=== PATIENT | male | born 1955 | race Caucasian/White ===

== ENCOUNTER 2019-02-07 16:26 | Inpatient (IN) | payer MEDICARE, SELFPAY ==
[2019-02-13] VITALS (13 sets, daily range): BP systolic 90–118; BP diastolic 36–72; PULSE 59–73; RESP 13–19; TEMP 36.6–36.9; O2SAT 90–97
[2019-02-13] MEDS: hydrocortisone 100 mg/2 mL SDV 50 MG IVP ×3 (04:52→18:46)
[2019-02-13 05:41] LABS: Alanine Aminotransferase 7 U/L (0-41); Albumin Level 2.7 g/dL (3.5-5.2); Alkaline Phosphatase 58 IU/L (40-130); Anion Gap 16.9 (5-19); Aspartate Amino Transferase 15 U/L (0-40); Blood Urea Nitrogen 41 mg/dL (8-23); Calcium 7.7 mg/Dl (8.8-10.2); Carbon Dioxide 23 mmol/L (22-29); Chloride 97 mmol/L (98-107); Globulin 3.1 g/dL (1.3-4.6); Glomerular Filtration Rate 9.9 mL/min (90-130); Glucose 122 mg/dL (74-106); Potassium 3.9 mmol/L (3.5-5.1); Sodium 133 mmol/L (136-145); Total Protein 5.8 g/dL (6.6-8.7)
--- NOTE | 2019-02-13 10:14 | PC.NURSE ---
iv intake for levophed amount is document on the other intake amount on intake and output
[2019-02-13] MEDS: famotidine 20 mg/2 mL INJ IVP ×2 (10:26→18:45)
[2019-02-13] MEDS: midodrine 5 mg TABLET 10 MG PO ×3 (10:28→23:08)
--- NOTE | 2019-02-13 10:34 | PM.PN ---
Subjective Subjective: Interval history: Patient is much more awake and alert this morning. He seemed to be sitting up in bed. He is conversant. Does need frequent redirection as to his surroundings.He is now able to swallow medications and has been started on midodrine. Per nursing report, he was off levophed overnight, but needed to be resumed at 2mcg/min this morning. Iv line pulled out accidentally this morning, right arm infiltrated. Blood culture clear since 02/08. Vitals/I&O/Wt Last Vital Signs Temp 97.8 F 02/13/19 08:00 Pulse 62 02/13/19 08:00 Resp 18 02/13/19 08:00 BP 91/51 02/13/19 08:00 Pulse Ox 97 02/13/19 08:00 02/12/19 02/13/19 02/13/19 22:59 06:59 14:59 Intake Total 720 / 720 Balance 720 / 720 Weight last 48 hrs Weight 67.67 kg Physical Exam Const: COMMON NORMALS: no apparent distress EXAM LIMITATIONS: behavioral limitations ORIENTATION/CONSCIOUSNESS: Yes awake and Yes oriented to person HENMT: COMMON NORMALS: normocephalic HEAD & SCALP: normocephalic Resp: COMMON NORMALS: normal respiratory effort, no use of accessory muscles and clear to auscultation bilaterally AUSCULTATION: clear to auscultation bilaterally Cardio: COMMON NORMALS: S1 normal heart sound, S2 normal heart sound and peripheral pulses 2+ throughout HEART SOUNDS: S1 normal and S2 normal PERIPHERAL PULSES: pulses 2+ throughout GI: COMMON NORMALS: normal to inspection, nondistended, normoactive bowel sounds and non-tender GI image (male): 1. paraincisional hernia Extremity: EXTREMITY IMAGE (FRONT): 1. B/L LE discolaration, unchanged, appears to be stasis dermatitis. Pulses WNL 2. Neuro: COMMON NORMALS: moves all extremities SENSORIUM/ORIENTATION: Yes oriented to person Data Labs: Other Labs: All Labs last 24 hrs except CBC/BMP 02/12/19 02/12/19 02/13/19 03:20 03:20 04:59 RBC 3.03 L MCV 104.6 H MCH 34.3 H MCHC 32.8 RDW 17.6 H MPV 10.8 H Neut % (Auto) 78.1 Lymph % (Auto) 16.6 Baxter % (Auto) 4.0 Eos % (Auto) 0.0 Baso % (Auto) 0.1 Neut # (Auto) 5.9 Lymph # (Auto) 1.3 Baxter # (Auto) 0.3 Eos # (Auto) 0.0 Baso # (Auto) 0.0 Nucleated RBC % (a uto) 0 Nucleated RBCs # 0.0 GFR Calculation 14.0 L 9.9 L Random Glucose 151 H Calcium 7.9 L 7.7 L Total Bilirubin 1.1 1.0 AST 14 15 ALT 9 7 Alkaline Phosphata se 65 58 Total Protein 6.0 L 5.8 L Albumin 2.4 L 2.7 L Globulin 3.6 3.1 Micro: Micro: 02/09: blood cx negative 1227 urine culture with E. coli 1226 blood culture with E. 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 This was seen to be improving on repeat CT. Urology consult was sought, no acute surgical intervention currently indicated. Patient's leukocytosis has nearly resolved. His pressor requirements are now trending down. We will start to titrate hydrocortisone today. Keep midodrine at 10 mg p.o. 3 times daily. Also started on albumin every 12 hours to maintain blood pressure. Continue ceftriaxone 1 g IV every 24 hours. Anticipate that patient will need at least 14 days of IV antibiotics from clearance of blood culture. Will place PICC line for the same reason. Central line to be removed once PICC line access has been established. Acute metabolic encephalopathy is also related to sepsis. Mental status is now slowly improving. Will obtain a bedside swallow eval and resume diet if patient is able to tolerate. End-stage renal disease on maintenance hemodialysis. Next HD per renal recommendations. Thrombocytopenia likely due to severe sepsis ESRD and history of hep C. Platelet count was slowly improving. We will resume DVT prophylaxis with heparin 5000 subcu every 12 hours. Status: Acute Code(s): A41.51 - Sepsis due to Escherichia coli [E. coli]; R65.21 - Severe sepsis with septic shock (3) Anemia: Status: Acute Code(s): D64.9 - Anemia, unspecified (4) Thrombocytopenia: Status: Acute Code(s): D69.6 - Thrombocytopenia, unspecified (5) Acute metabolic encephalopathy: Status: Acute Code(s): G93.41 - Metabolic encephalopathy Attestations Medical Necessity Statement*: Remains admitted for the management of E. coli septicemia and septic shock. Slowly showing some improvement we will continue to monitor closely in the ICU. 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
--- NOTE | 2019-02-13 13:39 | PC.NURSE ---
Central line: medial port taped off, does not flush or return blood.
--- NOTE | 2019-02-13 14:44 | PC.NURSE ---
Password changed to JOANN ( Name of his dog) per 's request. Previous password , [email or web address], no longer valid, it got out to the wrong person.
--- NOTE | 2019-02-13 14:50 | PC.CHAP ---
Pastoral Care Encounter/Spiritual Assessment Type of Contact [] Declined box feeder visit [] Patient/Family/Request visit [] Outpatient visit [] Follow-up visit [] Physician referral [] Code/Alert [x] Routine visit [] Staff referral [] Actively dying [] Patient sleeping [] Family support [] [] Out of room [] Palliative care [] [] Receiving care in room [] Pre-surgical visit [] Trauma [] Long length of stay [] ICU visit [] Other: Relational/Emotional Strength [] Patient feels connected with others/family/visitors/staff [x] Distress [x] Loneliness/isolation [] Abandonment Spirituality of Patient [] Person of Crystal [] Attends Lutheran of their Crystal [] Believes in Prayer [] Reads Bible or Judaism materials [x] There are Spiritual issues to be addressed Adult Specialist Interventions [x] Prayer [x] Active listening [x] Non-anxious presence [x] Spiritual/emotional support [] Crisis/trauma care [] Spiritual counseling [] Bereavement support [] Provided bereavement packet [] Provided Bible/devotional materials [] Provided toy/stuffed animal, coloring book to patient or family member [] Completed spiritual assessment [] Provided Communion [] Anointing/[place] [] Salvation [] Other: Impact on Illness or Injury [] Angry [x] Fearful [x] Anxious [] Often cries [] Exhaustion [] Unable to work [] Unable to attend anglican [] Unable to walk/stand [] Unable to read [x] Unable to drive [] Unable to eat/drink [] Unable to sleep [x] Unable to be with family [] Other: Summary quit person listened responseive active Time spent with patient 10 mins
--- NOTE | 2019-02-13 15:44 | PC.NURSE ---
Right forearm IV out Catheter intact. Pressure dressing applied. Linens a bloody mess. Provided skin care and changed linens. Pt tolerated well.
--- NOTE | 2019-02-13 17:09 | P.PN_ITS ---
Subjective Subjective: Interval history: Feels ok, doing well on dialysis, pressors now tapered off, no new issues. No uremic Sx, no edema and no other acute issues Vitals/I&O/Wt Last Vital Signs Temp 97.8 F 02/13/19 08:00 Pulse 67 02/13/19 15:52 Resp 17 02/13/19 15:52 BP 107/46 02/13/19 15:52 Pulse Ox 90 02/13/19 15:52 02/13/19 02/13/19 02/13/19 06:59 14:59 22:59 Intake Total 720 / 720 314 / 314 64 / 378 Balance 720 / 720 314 / 314 64 / 378 Weight last 48 hrs Weight 67.67 kg Physical Exam Const: COMMON NORMALS: no apparent distress, average body habitus, oriented x3, no limitations, healthy appearing, alert and well nourished Eye: COMMON NORMALS: PERRL, EOMs intact bilaterally, conjunctivae normal, no scleral icterus, no papilledema, normal visual velasco by confrontation and fundi normal bilaterally CONJUNCTIVA: Yes conjunctivae normal PUPIL: Yes PERRL DIRECT OPHTHALMOSCOPY: Yes no papilledema and Yes fundi normal bilaterally Neck/C-Spine: COMMON NORMALS: no JVD Lymph: LYMPHATIC: no lymphadenopathy noted and No lymphedema Chest: COMMONS NORMALS: inspection of chest normal and palpation of chest normal Resp: COMMON NORMALS: normal respiratory effort, no retractions, no use of accessory muscles and clear to auscultation bilaterally AUSCULTATION: clear to auscultation bilaterally Cardio: COMMON NORMALS: no JVD, regular rate, regular rhythm and no murmurs RATE: regular rate RHYTHM: regular rhythm GI: COMMON NORMALS: normal to inspection, nondistended, normoactive bowel sounds and soft to palpation PALPATION: Yes soft Neuro: COMMON NORMALS: oriented x3 SENSORIUM/ORIENTATION: Yes alert Urinary Catheter Management^: Ko: Cath Placed During This Visit: no Data Labs: Other Labs: All Labs last 24 hrs except CBC/BMP 02/13/19 04:59 GFR Calculation 9.9 L Calcium 7.7 L Total Bilirubin 1.0 AST 15 ALT 7 Alkaline Phosphata se 58 Total Protein 5.8 L Albumin 2.7 L Globulin 3.1 A&P Additional A&P Information Additional A&P Information: 1. ESRD - doing well on dialysis; 2K, UF minimal given the effects on is hemodynamics 2. Pyelonephritis - Responding to Abx - pressors now coming down 3. Bone metabolism - cont OP meds - phos and iPTH to be managed as outpatient per standard care. 4. 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
[2019-02-13] MEDS: cefTRIAXone 1,000 MG in sodium chloride 0.9% (plus) 50 ML 100 MG IV (18:45)
[2019-02-13] MEDS: heparin 5,000 unit/mL INJ 1 mL 5000 UNIT SUBCUT (18:46)
[2019-02-13] MEDS: sodium chloride 0.9 % (flush) syringe 10 mL 2 ML IV (23:08)
[2019-02-14] VITALS (17 sets, daily range): BP systolic 103–138; BP diastolic 43–86; PULSE 51–90; RESP 12–28; TEMP 36.2–36.6; O2SAT 87–99; BMI 21.0
[2019-02-14 04:11] LABS: Hematocrit 25.3 % (42.0-52.0); Hemoglobin 7.8 g/dL (11.7-16.6); Lymphocytes # 0.7 10^3/uL (0.8-4.8); Lymphocytes % 10.8 %; Mean Corpuscular HGB Conc 30.8 g/dL (30.0-36.0); Mean Corpuscular Hemoglobin 34.7 pg (28.0-34.0); Mean Corpuscular Volume 112.4 fL (80-94); Mean Platelet Volume 11.4 fL (7.4-10.4); Monocytes # 0.2 10^3/uL (0.2-0.9); Monocytes % 3.5 %; Neutrophils # 5.3 10^3/uL (1.8-7.7); Neutrophils % 84.3 %; Nucleated Red Blood Cells % 0 %; Platelet Count 57 10^3/cmm (130-400); Red Blood Count 2.25 10^6/uL (4.1-5.3); Red Cell Distribution Width 17.8 % (12.1-15.1); White Blood Count 6.3 10^3/uL (4.0-10.0)
[2019-02-14 04:22] LABS: Add RBC Morph No
[2019-02-14 04:34] LABS: Alanine Aminotransferase 9 U/L (0-41); Albumin Level 3.1 g/dL (3.5-5.2); Alkaline Phosphatase 49 IU/L (40-130); Anion Gap 13.1 (5-19); Aspartate Amino Transferase 20 U/L (0-40); Blood Urea Nitrogen 23 mg/dL (8-23); Calcium 7.2 mg/Dl (8.8-10.2); Carbon Dioxide 25 mmol/L (22-29); Chloride 100 mmol/L (98-107); Globulin 2.2 g/dL (1.3-4.6); Glomerular Filtration Rate 16.7 mL/min (90-130); Glucose 109 mg/dL (74-106); Potassium 3.1 mmol/L (3.5-5.1); Sodium 135 mmol/L (136-145); Total Protein 5.3 g/dL (6.6-8.7)
[2019-02-14] MEDS: hydrocortisone 100 mg/2 mL SDV 50 MG IVP ×3 (06:01→23:07)
[2019-02-14] MEDS: heparin 5,000 unit/mL INJ 1 mL 5000 UNIT SUBCUT (06:01)
[2019-02-14] MEDS: sodium chloride 0.9 % (flush) syringe 10 mL 2 ML IV ×3 (06:02→23:07)
[2019-02-14] MEDS: famotidine 20 mg/2 mL INJ IVP ×2 (08:37→17:35)
[2019-02-14] MEDS: midodrine 5 mg TABLET 10 MG PO ×2 (08:43→15:10)
--- NOTE | 2019-02-14 09:01 | P.PN_ITS ---
Subjective Subjective: Interval history: conitnues to appear deconditioned, however able to state correctly his name, and location to me. Correctly states that he was living alone at home prior to coming in and would like to go to [place] upon discharge. HB to 7.8<--10.4. No gross daisha noted. @ bm overnight- semi solid. No leukocytosis. Plt down to 57<--72. R arm infiltrated 2/2 IV leak. Fistula site appears swollen, though without overlying warmth or tenderness. No new complaints today, states he feels well Vitals/I&O/Wt Last Vital Signs Temp 97.6 F 02/14/19 07:40 Pulse 71 02/14/19 07:40 Resp 18 02/14/19 07:40 BP 107/63 02/14/19 07:40 Pulse Ox 94 02/14/19 07:40 02/13/19 02/14/19 02/14/19 22:59 06:59 14:59 Intake Total 614 / 1128 100 / 100 Balance 614 / 1128 100 / 100 Weight last 48 hrs Weight 67.67 kg Physical Exam Narrative: EXAM NARRATIVE: GEN: Frail, severely deconditioned, however awake and alert while having a conversation. 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 This was seen to be improving on repeat CT. Urology consult was sought, no acute surgical intervention currently indicated. Patient's leukocytosis has resolved. He is off pressors for over 24hrs. We will continue to titrate hydrocortisone to q12h today. Keep midodrine at 10 mg p.o. 3 times daily. Also started on albumin every 12 hours to maintain blood pr essure. Continue ceftriaxone 1 g IV every 24 hours. Anticipate that patient will need at least 14 days of IV antibiotics from clearance of blood culture (02/09-02/23) Will place PICC line for the same reason. Central line to be removed once PICC line access has been established. Acute metabolic encephalopathy also most likely related to sepsis. Mental status is now slowly improving, however patient continues to appear frail and severely deconditioned Diet resumed yesetrday - to advance as tolerated End-stage renal disease on maintenance hemodialysis. Next HD per renal recommendations. Thrombocytopenia likely due to severe sepsis ESRD and history of hep C. Platelet count trending down again. Hb to 7.8, may be dilutional, however will check gasticoccult and hold off on heparin ppx for now. Will need NH placement on discharge as unsafe to return home alone. Status: Acute Code(s): A41.51 - Sepsis due to Escherichia coli [E. coli]; R65.21 - Severe sepsis with septic shock (3) Anemia: likely multifactorial from ESRD, critical illnenss. Monitopr H&H. trans fuse if <7. 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
--- NOTE | 2019-02-14 10:24 | PC.NURSE ---
HOME MED: LISAEX D: Pt's home med taken to pharmacy [id number] on February 13, 2019 for a home med label. Still awaiting to received this medication back to admin.
[2019-02-14] MEDS: potassium chloride premix 40 MEQ/100 ML PREMIX 25 MEQ IV (12:21)
--- NOTE | 2019-02-14 13:41 | PC.NURSE ---
1130- PICC NOTE CONSENT FOR PROCEDURE NEEDS TO BE OBTAINED FROM PT SISTER, PRIMARY NURSE NEREYDA WILL COMPLETE. PICC PLACEMENT WILL BE PERFORMED ON 02/15/19 PATIENT HAS FUNCTIONING CENTRAL LINE INSERTED 02-01-19.
--- NOTE | 2019-02-14 15:25 | P.PN_ITS ---
Subjective Subjective: Interval history: remains awake and interactive; feels ok , remains very weak. Pressure are better controlled and he is off pressors. No overt fluid overload and no uremic Sx. Vitals/I&O/Wt Last Vital Signs Temp 97.6 F 02/14/19 07:40 Pulse 64 02/14/19 13:30 Resp 19 H 02/14/19 12:00 BP 117/58 02/14/19 12:00 Pulse Ox 93 02/14/19 13:30 02/14/19 02/14/19 02/14/19 06:59 14:59 22:59 Intake Total 740 / 740 Balance 740 / 740 Weight last 48 hrs Weight 68.492 kg Weight 68.492 kg Physical Exam Const: COMMON NORMALS: no apparent distress, average body habitus, oriented x3, no limitations, healthy appearing, alert and well nourished Eye: COMMON NORMALS: PERRL, EOMs intact bilaterally, conjunctivae normal, no scleral icterus, no papilledema, normal visual velasco by confrontation and fundi normal bilaterally CONJUNCTIVA: Yes conjunctivae normal PUPIL: Yes PERRL DIRECT OPHTHALMOSCOPY: Yes no papilledema and Yes fundi normal bilaterally Neck/C-Spine: COMMON NORMALS: no JVD Lymph: LYMPHATIC: no lymphadenopathy noted and No lymphedema Chest: COMMONS NORMALS: inspection of chest normal and palpation of chest normal Resp: COMMON NORMALS: normal respiratory effort, no retractions, no use of accessory muscles and clear to auscultation bilaterally AUSCULTATION: clear to auscultation bilaterally Cardio: COMMON NORMALS: no JVD, regular rate, regular rhythm and no murmurs RATE: regular rate RHYTHM: regular rhythm GI: COMMON NORMALS: normal to inspection, nondistended, normoactive bowel sounds and soft to palpation PALPATION: Yes soft Neuro: COMMON NORMALS: oriented x3 SENSORIUM/ORIENTATION: Yes alert Urinary Catheter Management^: Ko: Cath Placed During This Visit: no Data Micro: Micro: Microbiology 02/14/19 07:00 Occult Blood (FIT) - Final Stool A&P Additional A&P Information Additional A&P Information: 1. ESRD - plan on dialysis tomorrow; 2K, UF minimal given the effects on is hemodynamics 2. Pyelonephritis - Responding to Abx - pressors now coming down 3. Bone metabolism - cont OP meds - phos and iPTH to be managed as outpatient per standard care. 4. 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
--- NOTE | 2019-02-14 15:58 | PC.CHAP ---
Pastoral Care Encounter/Spiritual Assessment Type of Contact [] Declined bacteriologist industrial visit [] Patient/Family/Request visit [] Outpatient visit [] Follow-up visit [] Physician referral [] Code/Alert [x] Routine visit [] Staff referral [] Actively dying [] Patient sleeping [] Family support [] [] Out of room [] Palliative care [] [] Receiving care in room [] Pre-surgical visit [] Trauma [] Long length of stay [x] ICU visit [] Other: Relational/Emotional Strength [] Patient feels connected with others/family/visitors/staff [x] Distress [x] Loneliness/isolation [] Abandonment Spirituality of Patient [x] Person of Crystal [] Attends Anglican of their Crystal [x] Believes in Prayer [] Reads Bible or Religion materials [] There are Spiritual issues to be addressed Network Management Specialist Interventions [x] Prayer [x] Active listening [x] Non-anxious presence [x] Spiritual/emotional support [] Crisis/trauma care [] Spiritual counseling [] Bereavement support [] Provided bereavement packet [] Provided Bible/devotional materials [] Provided toy/stuffed animal, coloring book to patient or family member [x] Completed spiritual assessment [] Provided Communion [] Anointing/[place] [] Salvation [] Other: Impact on Illness or Injury [] Angry [] Fearful [] Anxious [] Often cries [] Exhaustion [x] Unable to work [] Unable to attend synagogue [x] Unable to walk/stand [] Unable to read [x] Unable to drive [x] Unable to eat/drink [] Unable to sleep [x] Unable to be with family [] Other: Summary Able to talk, not very comunive does understand what is going on respossive, pleasent, been in [address] days. Network Management Specialist Dr alessio Caba Time spent with patient 10 mins
--- NOTE | 2019-02-14 17:13 | ECG_ITS ---
Measurements Intervals [place] Rate: 59 P: 37 ID: [id number] QRS: 42 QRSD: 116 T: 43 QT: 462 QTc: 461 SINUS BRADYCARDIA WITH SUPRAVENTRICULAR PREMATURE COMPLEXES INCOMPLETE RIGHT BUNDLE BRANCH BLOCK [90+ ms QRS DURATION, TERMINAL R IN V1/V2, 40+ ms S IN I/aVL/V4/V5/V6] PROLONGED QT INTERVAL Compared to ECG 02/09/2019 03:26:28 Incomplete right bundle-branch block now present Prolonged QT interval now present Sinus rhythm no longer present Ventricular premature complex(es) no longer present Right bundle-branch block no longer present Electronically Signed On 02-15-2019 5:38:41 DIRECTOR OF CASINO by Maira Calles M.D. [email or web address]
[2019-02-14] MEDS: FUROsemide 10 mg/mL SDV 4mL 40 MG IVP (17:35)
[2019-02-14] MEDS: cefTRIAXone 1,000 MG in sodium chloride 0.9% (plus) 50 ML 200 MG IV (17:35)
--- NOTE | 2019-02-14 17:39 | XR_ITS ---
WS: [id number] Portable AP upright chest, 02/14/2019 Clinical Data: SOB Comparison: Portable chest, 02/07/2019. Findings: No nodules, masses or effusions are seen. The heart is slightly enlarged. The pulmonary vas cularity is not increased. Bilateral patchy opacities are seen especially in both lower lobes and the se are not changed. The right central venous catheter has been removed. Monitor leads are on the ches t wall. XR/XR chest 1V portable [id number] Impression: 1. Bilateral lower lobe opacities which may represent chronic bilateral pneumon ia. 2. Cardiomegaly and atherosclerosis.
[2019-02-14 17:43] LABS: ABG PH Result 7.24 (7.35-7.45); Arterial Blood Gas Hematocrit 27.8 % (42-52); Base Excess ABG 0.1 mmol/L (-2.0-2.0); Blood Gas Allen Test Pos; Blood Gas Sample Site Radial, right; Blood Gas Sample Type Arterial; HCO3 ABG 28.1 mmol/L (22-26); PO2 ABG 52.6 mmHg (80.0-100.0)
[2019-02-14 17:44] LABS: ABG PCO2 65.1 mmHg (35-45)
--- NOTE | 2019-02-14 18:35 | PC.NURSE ---
Central line Catheter pulled out of Secure clip by patient. Sutures for clip removed, PRessure held until hemeostasis obtained. New IV started, 4 attempts, to right upper arm, # 22 gauge. Immediate flash back, flushes. Pt tolerated
[2019-02-14 18:44] LABS: Alanine Aminotransferase 11 U/L (0-41); Albumin Level 3.3 g/dL (3.5-5.2); Alkaline Phosphatase 51 IU/L (40-130); Anion Gap 15.1 (5-19); Blood Urea Nitrogen 32 mg/dL (8-23); Calcium 8.3 mg/Dl (8.8-10.2); Carbon Dioxide 28 mmol/L (22-29); Chloride 99 mmol/L (98-107); Globulin 3.2 g/dL (1.3-4.6); Glomerular Filtration Rate 13.7 mL/min (90-130); Glucose 150 mg/dL (74-106); Potassium 4.1 mmol/L (3.5-5.1); Sodium 138 mmol/L (136-145); Total Protein 6.5 g/dL (6.6-8.7)
[2019-02-14 18:50] LABS: Aspartate Amino Transferase 28 U/L (0-40)
[2019-02-14 19:04] LABS: Troponin(5th) Baseline 99 ng/mL (0-15)
--- NOTE | 2019-02-14 19:23 | PC.NURSE ---
1730 Dr Rawls notified of bradycardia and , fine crackles noted in lung soundsO2 sats 84-88%. RT at bedside Oxymask and an increase in O2 tried. Orders for Lasix, Hi-flow O2, ECG, Chest xray and a CMP received. Lasix administer, then pt pulled central line 9See previous note). O2 sats do come up to 90%, Pt will not leave Oxymask or Hi-flow on. BiPap at 30% now. Pt needs constant reminder to leave it on. Hemodialysis ordered for tonight.
--- NOTE | 2019-02-14 19:30 | PC.NURSE ---
Report given to MIKEY Solomon. Hemodialysis nurse here, hemodialysis started.
[2019-02-14 20:09] LABS: Troponin 5 2HR 93.57 ng/mL (0-15)
[2019-02-14 20:11] LABS: Troponin 5 2HR Delta -5.43 ABS# (0-10)
[2019-02-15] VITALS (18 sets, daily range): BP systolic 107–147; BP diastolic 45–65; PULSE 48–86; RESP 10–29; TEMP 36–36.7; O2SAT 91–100
[2019-02-15 00:31] LABS: Troponin 5 6HR 93.65 ng/L (0-15)
[2019-02-15 00:43] LABS: Troponin 5 6HR Delta 6.65 ng/L (0-12)
[2019-02-15] MEDS: sodium chloride 0.9 % (flush) syringe 10 mL 2 ML IV (05:56)
--- NOTE | 2019-02-15 07:09 | PC.NURSE ---
SHIFT SUMMARY PT HAS BEEN CONFUSED. PT HAS BEEN BRADYCARDDIAC, NOT SUSTAINING FOR LONG PERIODS OF TIME BELOW 50. PT HAS BEEN TURNED PERIODICALLY. PT HAS HAD LIQUID BOWEL MOVEMENTS. PT LUNGS REMAIN CORSE AT TIMES WITH WHEEZES AT TIMES WELL. PT IV REMAINS PATENT. PT IS WEEPING FROM ARM EDEMA, ARMS HAVE BEEN ELEVATED.
--- NOTE | 2019-02-15 08:41 | XR_ITS ---
WS: [id number] Portable AP upright chest, 02/15/2019 Clinical Data: picc Comparison: Portable chest, 02/14/2019 Findings: The right PICC line ends in the superior vena cava. No pneumothorax is seen. The heart size and bilateral lung opacities remain the same. Small bilateral effusions are again noted. Monitor bradley ds on the chest wall. XR/XR chest 1V portable [id number] Impression: Satisfactory placement of right PICC line.
--- NOTE | 2019-02-15 09:13 | PC.NURSE ---
[facility] LOT NUMBER- [id number]. EXPIRATION- 09/12/20
[2019-02-15 09:32] LABS: Hematocrit 25.1 % (42.0-52.0); Hemoglobin 7.5 g/dL (11.7-16.6); Lymphocytes # 0.7 10^3/uL (0.8-4.8); Lymphocytes % 12.7 %; Mean Corpuscular HGB Conc 29.9 g/dL (30.0-36.0); Mean Corpuscular Hemoglobin 33.5 pg (28.0-34.0); Mean Corpuscular Volume 112.1 fL (80-94); Mean Platelet Volume 10.8 fL (7.4-10.4); Monocytes # 0.2 10^3/uL (0.2-0.9); Monocytes % 3.5 %; Neutrophils # 4.3 10^3/uL (1.8-7.7); Neutrophils % 82.6 %; Nucleated Red Blood Cells % 0 %; Platelet Count 58 10^3/cmm (130-400); Red Blood Count 2.24 10^6/uL (4.1-5.3); Red Cell Distribution Width 17.9 % (12.1-15.1); White Blood Count 5.2 10^3/uL (4.0-10.0)
--- NOTE | 2019-02-15 09:38 | P.PN_ITS ---
Subjective Subjective: Interval history: Events from last night noted. He developed severe SOB, required BIPAP; we dialyzed him to pull off 2L. Today he remains awake and interactive; feels ok , remains very weak, but remains dependent on BIPAP. Pressure just about maintaining on BIPAP. No overt fluid overload and no uremic Sx. Vitals/I&O/Wt Last Vital Signs Temp 96.8 F L 02/15/19 06:00 Pulse 48 L 02/15/19 07:56 Resp 18 02/15/19 07:56 BP 107/45 02/15/19 07:56 Pulse Ox 96 02/15/19 07:56 02/14/19 02/15/19 02/15/19 22:59 06:59 14:59 Intake Total 50 / 790 480 / 480 Output Total 0 / 0 0 / 0 Balance 50 / 790 480 / 480 Weight last 48 hrs Weight 70.08 kg Weight 68.492 kg Weight 68.492 kg Physical Exam Const: COMMON NORMALS: no apparent distress, average body habitus, oriented x3, no limitations, healthy appearing, alert and well nourished Eye: COMMON NORMALS: PERRL, EOMs intact bilaterally, conjunctivae normal, no scleral icterus, no papilledema, normal visual velasco by confrontation and fundi normal bilaterally CONJUNCTIVA: Yes conjunctivae normal PUPIL: Yes PERRL DIRECT OPHTHALMOSCOPY: Yes no papilledema and Yes fundi normal bilaterally Neck/C-Spine: COMMON NORMALS: no JVD Lymph: LYMPHATIC: no lymphadenopathy noted and No lymphedema Chest: COMMONS NORMALS: inspection of chest normal and palpation of chest normal Resp: EFFORT & INSPECTION: Yes symmetric chest movement AUSCULTATION: rales and rhonchi Cardio: COMMON NORMALS: no JVD, regular rate, regular rhythm and no murmurs RATE: regular rate RHYTHM: regular rhythm GI: COMMON NORMALS: normal to inspection, nondistended, normoactive bowel sounds and soft to palpation PALPATION: Yes soft Neuro: COMMON NORMALS: oriented x3 SENSORIUM/ORIENTATION: Yes alert Urinary Catheter Management^: Ko: Cath Placed During This Visit: no Data Micro: Micro: Microbiology 02/14/19 07:00 Occult Blood (FIT) - Final Stool A&P Additional A&P Information Additional A&P Information: 1. ESRD - plan on dialysis again today; given very labile hemodynamics I prefer frequent low volume UF; this is essentially equivalent to CRRT - 3K today and 2L UF 2. Pyelonephritis - Responding to Abx - pressors now coming down 3. Bone metabolism - cont OP meds - phos and iPTH to be managed as outpatient per standard care. 4. Hypotension - random shanika ok - echo noted 5. 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
[2019-02-15 09:45] LABS: Alanine Aminotransferase 9 U/L (0-41); Albumin Level 3.5 g/dL (3.5-5.2); Alkaline Phosphatase 45 IU/L (40-130); Anion Gap 14.8 (5-19); Aspartate Amino Transferase 18 U/L (0-40); Blood Urea Nitrogen 40 mg/dL (8-23); Calcium 8.3 mg/Dl (8.8-10.2); Carbon Dioxide 26 mmol/L (22-29); Chloride 102 mmol/L (98-107); Glomerular Filtration Rate 11.3 mL/min (90-130); Glucose 112 mg/dL (74-106); Potassium 3.8 mmol/L (3.5-5.1); Sodium 139 mmol/L (136-145); Total Protein 5.5 g/dL (6.6-8.7)
[2019-02-15] MEDS: hydrocortisone 100 mg/2 mL SDV 50 MG IVP (10:24)
[2019-02-15] MEDS: midodrine 5 mg TABLET PO ×2 (10:26→15:05)
--- NOTE | 2019-02-15 13:35 | PC.NURSE ---
placed on nc at this time has been drowsy today and not taking much po picc line inserted right bleeding noted at site and pressure dressing on
[2019-02-15 13:38] LABS: Arterial Blood Gas Hematocrit 24.8 % (42-52); Blood Gas Allen Test Pos; Blood Gas Sample Site Radial, left; Blood Gas Sample Type Arterial; HGB O2 Sat 95.9 % (95-100)
[2019-02-15 13:48] LABS: ABG PCO2 54.9 mmHg (35-45); Base Excess ABG 0.2 mmol/L (-2.0-2.0)
--- NOTE | 2019-02-15 13:48 | PC.NURSE ---
starting dialysis at this time bipap off
--- NOTE | 2019-02-15 14:34 | PC.CHAP ---
Pastoral Care Encounter/Spiritual Assessment Type of Contact [x] Declined catalyst operator visit [] Patient/Family/Request visit [] Outpatient visit [] Follow-up visit [] Physician referral [] Code/Alert [] Routine visit [] Staff referral [] Actively dying [] Patient sleeping [] Family support [] [] Out of room [] Palliative care [] [] Receiving care in room [] Pre-surgical visit [] Trauma [x] Long length of stay [x] ICU visit [] Other: Relational/Emotional Strength [] Patient feels connected with others/family/visitors/staff [] Distress [] Loneliness/isolation [] Abandonment Spirituality of Patient [] Person of Crystal [] Attends Protestant of their Crystal [] Believes in Prayer [] Reads Bible or Spiritism materials [] There are Spiritual issues to be addressed Medical Facilities Section Director Interventions [] Prayer [] Active listening [] Non-anxious presence [] Spiritual/emotional support [] Crisis/trauma care [] Spiritual counseling [] Bereavement support [] Provided bereavement packet [] Provided Bible/devotional materials [] Provided toy/stuffed animal, coloring book to patient or family member [] Completed spiritual assessment [] Provided Communion [] Anointing/[place] [] Salvation [] Other: Impact on Illness or Injury [] Angry [] Fearful [] Anxious [] Often cries [] Exhaustion [] Unable to work [] Unable to attend orthodox [] Unable to walk/stand [] Unable to read [] Unable to drive [] Unable to eat/drink [] Unable to sleep [] Unable to be with family [] Other: Summary Patient declined to visit with catalyst operator. Visit attempted by catalyst operator Rosendo Smith Time spent with patient 3 minutes
--- NOTE | 2019-02-15 15:51 | P.TS_ITS ---
Transfer Summary Providers Date of Admission: 02/07/19 16:26 Date of Discharge: 02/15/19 Attending Provider at Admission: Eva Rawls MD Attending Provider at Transfer: Eva Rawls MD Primary Care Provider: Elizabeth Christianson Anticipated Date of Transfer: Anticipated date of transfer: 02/15/19 Receiving Facility & Provider: Receiving Provider: [[facility] Goodman] [facility] Diagnoses at Discharge Discharge Diagnosis (1) ESRD needing dialysis: Status: Chronic Problem details: Patient undergoing HD per renal recommendations. Last dialysis 02/15/19. Additional HD on 02/14/19 (2) Septic shock due to Escherichia coli: Status: Acute Problem details: Emphysematous cystitis and collecting system gas seen on admission CT. Improved on follow up. Blood and urine cx + for E.coli. Urology consulted, no surgical intervention recommended since improved CT, leukocytosis downtrending and blood cx cleared.Also had B/L lung infiltrates. Initially on Primaxin and Vancomycin, narrowed to Ceftriaxone based on culture. Planned for 14 days of rx from clearance of cx (02/09-02/23). Initially on Norepinephrine, gradually tapered to overlap with po midodrine. Now on po midodrine to maintain MAP>65. On 02/14/19 evening, had hypoxic resp failure with 02 sat down to low 80s. Of note, had not had HD on 02/14 prior to this event and no fluid was removed due to tenous pressure on 02/13. Likely had pulmonary edema as a result with hypoxia. ABG with hypoxia and Hypercarbia. On BiPAP ventilation since then with improvement in ABG. (3) Anemia: Status: Acute (4) Thrombocytopenia: Status: Acute (5) Acute metabolic encephalopathy: Status: Acute Problem details: Mental status improving on 02/13 and 02/14. Since being on BiPAP has started to Reason for Visit Reason for Visit: Reason For Visit: Septic Shock, Pneumonia Physical Exam Narrative: EXAM NARRATIVE: GEN: lethargic, however wakes up to calling name and answers basic questions CVS: S1S2 N RS: B/L basilar rales on auscultation CCVS: S1S2N NEuro: lethargic, wakes up to calling name, moves all extremities in bed EXT: Right arm PICC line placed 1/3/20. Left arm AV fistula,, surrounding swelling and skin weeping Urinary Catheter Management^: Ko: Cath Placed During This Visit: no TS Data Data Completed and Pending: Completed Studies During Hospitalization Category Date Time Status CXRP [XR chest 1V portable [id number]] S tat Exams 02/15/19 08:41 Completed XR chest 1V tavo ble [id number] Stat Exams 02/14/19 17:39 Completed Pending at discharge Category Date Time Status ABG Coox Only Rou cristina Lab 02/15/19 13:25 Results Arterial Blood Ga s W/O Coox Routine Lab 02/14/19 17:30 Results Arterial Blood Ga s W/O Coox Routine Lab 02/15/19 08:23 Ordered Arterial Blood Ga s W/O Coox Routine Lab 02/15/19 13:25 Results Sputum Culture an d Gram Stain Routi ne Lab 02/12/19 23:55 Uncollected Labs from last 24 hours 02/15/19 02/15/19 02/15/19 13:25 09:23 09:23 WBC 5.2 RBC 2.24 L Hgb 7.5 L Hct 25.1 L MCV 112.1 H MCH 33.5 MCHC 29.9 L RDW 17.9 H Plt Count 58 L MPV 10.8 H Neut % (Auto) 82.6 Lymph % (Auto) 12.7 [place] % (Auto) 3.5 Eos % (Auto) 0.0 Baso % (Auto) 0.0 Neut # (Auto) 4.3 Lymph # (Auto) 0.7 L [place] # (Auto) 0.2 Eos # (Auto) 0.0 Baso # (Auto) 0.0 Nucleated RBC % (a uto) 0 Nucleated RBCs # 0.0 Specimen Type Arterial Sample Site Radial, left ABG pH 7.30 L ABG pCO2 54.9 H ABG pO2 118.0 H ABG HCO3 27.0 H ABG Base Excess 0.2 Blas Test Pos Hematocrit 24.8 L Hgb O2 Saturation 95.9 O2 Delivery Device O2 Liters/Min Mode BiPAP Specimen Drawn By Chain Builder ID yorna Sodium 139 Potassium 3.8 Chloride 102 Carbon Dioxide 26 Anion Gap 14.8 BUN 40 H Creatinine 5.2 H GFR Calculation 11.3 L Glucose 112 H Calcium 8.3 L Total Bilirubin 1.0 AST 18 ALT 9 Alkaline Phosphata se 45 Troponin I 6 Hour Troponin I Hi Sens Del Troponin T Baselin e Troponin T 120 Min seminole Delta Troponin T Total Protein 5.5 L Albumin 3.5 Globulin 2.0 02/14/19 02/14/19 02/14/19 23:48 19:40 17:45 WBC RBC Hgb Hct MCV MCH MCHC RDW Plt Count MPV Neut % (Auto) Lymph % (Auto) [place] % (Auto) Eos % (Auto) Baso % (Auto) Neut # (Auto) Lymph # (Auto) [place] # (Auto) Eos # (Auto) Baso # (Auto) Nucleated RBC % (a uto) Nucleated RBCs # Specimen Type Sample Site ABG pH ABG pCO2 ABG pO2 ABG HCO3 ABG Base Excess Blas Test Hematocrit Hgb O2 Saturation O2 Delivery Device O2 Liters/Min Mode BiPAP Specimen Drawn By Chain Builder ID Sodium Potassium Chloride Carbon Dioxide Anion Gap BUN Creatinine GFR Calculation Glucose Calcium Total Bilirubin AST ALT Alkaline Phosphata se Troponin I 6 Hour 93.65 H Troponin I Hi Sens Del 6.65 Troponin T Baselin e 99 H Troponin T 120 Min seminole 93.57 H Delta Troponin T -5.43 L Total Protein Albumin Globulin 02/14/19 02/14/19 17:45 17:30 WBC RBC Hgb Hct MCV MCH MCHC RDW Plt Count MPV Neut % (Auto) Lymph % (Auto) [place] % (Auto) Eos % (Auto) Baso % (Auto) Neut # (Auto) Lymph # (Auto) [place] # (Auto) Eos # (Auto) Baso # (Auto) Nucleated RBC % (a uto) Nucleated RBCs # Specimen Type Arterial Sample Site Radial, right ABG pH 7.24 L ABG pCO2 65.1 H* ABG pO2 52.6 L ABG HCO3 28.1 H ABG Base Excess 0.1 Blas Test Pos Hematocrit 27.8 L Hgb O2 Saturation O2 Delivery Device Pending O2 Liters/Min 12.0 Mode BiPAP Pending Specimen Drawn By Pending Chain Builder ID gd Sodium 138 Potassium 4.1 Chloride 99 Carbon Dioxide 28 Anion Gap 15.1 BUN 32 H Creatinine 4.4 H GFR Calculation 13.7 L Glucose 150 H Calcium 8.3 L Total Bilirubin 1.0 AST 28 ALT 11 Alkaline Phosphata se 51 Troponin I 6 Hour Troponin I Hi Sens Del Troponin T Baselin e Troponin T 120 Min seminole Delta Troponin T Total Protein 6.5 L D Albumin 3.3 L Globulin 3.2 Vitals: Last Vital Signs Temp 96.8 F L 02/15/19 14:00 Pulse 64 02/15/19 10:53 Resp 18 02/15/19 14:00 BP 129/64 02/15/19 14:00 Pulse Ox 98 02/15/19 14:00 TS Medications Medications Home Medications calcium acetate 667 mg PO TID 02/12/19 [History Confirmed 02/12/19] lidocaine-prilocaine 1 applic TOPICAL ONCE PRN 02/12/19 [History Confirmed 02/12/19] magnesium oxide 400 mg PO DAILY 02/12/19 [History Confirmed 02/12/19] pantoprazole [Protonix] 40 mg PO DAILY 02/12/19 [History Confirmed 02/12/19] tramadol 50 mg PO BID PRN 02/12/19 [History Confirmed 02/12/19] vit B [id number] ac-zinc [RenaPlex] 1 tab PO DAILY 02/12/19 [History Confirmed 02/12/19] Active Medications Calcium Acetate (Phoslo) 2,668 mg PO TIDWM [facility] Famotidine (Pepcid Inj) 20 mg IVP BID [facility] Last Admin: 02/14/19 17:35 Dose: 20 mg Documented by: Heparin Sodium (Beef Lung) (Heparin) 5,000 unit SUBCUT Q12H [facility] Last Admin: 02/14/19 06:01 Dose: 5,000 unit Documented by: Hydrocortisone Sodium Succinate (Solu-Cortef Inj) 50 mg IVP Q12H [facility] Last Admin: 02/15/19 10:24 Dose: 50 mg Documented by: Norepinephrine Bitartrate 4 mg (/ Dextrose) 254 mls @ 0 mls/hr IV .Q0M [facility]; Protocol Norepinephrine Bitartrate 8 mg (/ Dextrose) 508 mls @ 0 mls/hr IV .Q0M [facility]; Protocol Ceftriaxone Sodium 1,000 mg/ (Sodium Chloride) 50 mls @ 100 mls/hr IV Q24H [facility] Last Admin: 02/14/19 17:35 Dose: 200 mls/hr Documented by: Albumin Human (Albumin) 25 gm in 100 mls @ 60 mls/hr IV Q12H [facility] Last Infusion: 02/15/19 10:09 Dose: Infused Documented by: Lactulose (Constulose) 20 gm PO Q6H [facility] Midodrine (Proamatine) 5 mg PO TID [facility] Last Admin: 02/15/19 15:05 Dose: 5 mg Documented by: Non-Formulary Medication-Renaplex- D 1 each PO DAILY [facility] Last Admin: 02/15/19 11:37 Dose: 1 each Documented by: Ondansetron HCl (Zofran) 4 mg IVP Q6H PRN PRN Reason: NAUSEA AND VOMITING Sodium Chloride (Sodium Chloride 0.9 % (Flush)) 2 ml IV PIID [facility] Last Admin: 02/15/19 05:56 Dose: 2 ml Documented by: Thiamine HCl (Vitamin B-1) 100 mg IV DAILY [facility] Last Admin: 02/15/19 10:24 Dose: 100 mg Documented by: Discharge Plan Discharge Patient Disposition: Xfer [facility] Condition: Stable Prescriptions: No Action tramadol 50 mg Tablet 50 mg PO BID PRN (Reason: Pain) RF: 0 Protonix 40 mg Tablet,Delayed Release (Dr/Ec) 40 mg PO DAILY RF: 0 calcium acetate 667 mg Capsule 667 mg PO TID RF: 0 magnesium oxide 400 mg magnesium Capsule 400 mg PO DAILY RF: 0 RenaPlex 800 mcg- 12.5 mg Tablet 1 tab PO DAILY RF: 0 lidocaine-prilocaine 2.5-2.5 % Cream 1 applic topical ONCE PRN (Reason: Pain At Injection Site) RF: 0 Transfer Attestations Time Spent in Transfer Care*: greater than 30 min Quality Metrics Clinical Quality Measures: During this hospital stay, did patient experience: None Coding Level of Care Code Acute Service Restorer Emergency for g Fwd Diagnoses ESRD needing dialysis N18.6; Z99.2 Septic shock due to Escherichia coli A41.51; R65.21 Anemia D64.9 Thrombocytopenia D69.6 Acute metabolic encephalopathy G93.41
[2019-02-15 17:26] LABS: Glucose Point of Care 96 mg/dL (70-110)
[2019-02-15] MEDS: famotidine 20 mg/2 mL INJ IVP (18:14)
[2019-02-15] MEDS: cefTRIAXone 1,000 MG in sodium chloride 0.9% (plus) 50 ML 200 MG IV (18:15)
[2019-02-15] MEDS: vancomycin 1,000 MG in sodium chloride 0.9% 250 ML 250 MG IV (19:09)
--- NOTE | 2019-02-15 20:20 | PC.RESP ---
bipap #1 on standby pt on 7.5 lm high flow nc
[2019-02-20 07:49] LABS: Oxygen Device NC
[2019-02-20 08:28] LABS: Oxygen Device NC
[2019-02-20 09:47] LABS: Methemoglobin 1.3 % (0.4-1.5); Total Hemoglobin 8.1 g/dL (14-18)
== END 2019-02-15 22:02 | DRG 871 ==
PROVIDERS: Admitting Provider Student in an Organized Health Care Education/Training Program; Emergency Provider Emergency Medicine; PCP Nurse Practitioner; Referring Provider Student in an Organized Health Care Education/Training Program; Visit Provider Student in an Organized Health Care Education/Training Program
DX: A41.51 Sepsis due to Escherichia coli [E. coli] (principal); R65.21 Severe sepsis with septic shock; J18.9 Pneumonia, unspecified organism; N18.6 End stage renal disease; G93.41 Metabolic encephalopathy; I12.0 Hypertensive chronic kidney disease with stage 5 chronic kidney disease or end stage renal disease; E87.2 Acidosis; N10 Acute pyelonephritis; N39.0 Urinary tract infection, site not specified; K91.2 Postsurgical malabsorption, not elsewhere classified; Z99.2 Dependence on renal dialysis; D63.1 Anemia in chronic kidney disease; F17.210 Nicotine dependence, cigarettes, uncomplicated; D69.6 Thrombocytopenia, unspecified; I95.9 Hypotension, unspecified; Z87.01 Personal history of pneumonia (recurrent); D50.9 Iron deficiency anemia, unspecified; Z86.19 Personal history of other infectious and parasitic diseases; I87.2 Venous insufficiency (chronic) (peripheral); K43.2 Incisional hernia without obstruction or gangrene
CPT/HCPCS: 36415; 36416; 36556; 36592; 36600; 51702; 70450; 71045; 71250; 74176; 80053; 80074; 80202; 80307; 81001; 82140; 82274; 82533; 82607; 82803; 82810; 82962; 83540; 83550; 83605; 83880; 84145; 84443; 84484; 85007; 85025; 85027; 85610; 87040; 87070; 87077; 87086; 87186; 87205; 87389; 87449; 87641; 87804; 90935; 92526; 92610; 93005; 93306; 93971; 94003; 94660; 94664; 96360; 96365; 96366; 96368; 96374; 96375; 97110; 97162; 97530; 99285; J0696; J0743; J1644; J1720; J1940; J2270; J2543; J3370; J3411; J3480; J3490; J7050; P9041; P9047; Q3014